=== PATIENT | male | born 1935 | race Caucasian/White ===

== ENCOUNTER 2020-12-08 06:32 | Inpatient (IN) | payer MEDICARE, OTHER ==
[~2020-12-08] VITALS: Ht 170.2 cm; Wt 73.7 kg
[2020-12-08 07:27] LABS: BASOPHIL 0.2 % (0-2); EOSINOPHIL 0.1 % (0-7); HCT 43.3 % (42.0-52.0); HGB 14.8 g/dl (13.2-18.0); LYMPHOCYTE 8.5 % (15-48); MCH 30.5 pg (25.0-31.0); MCHC 34.2 g/dL (32.0-36.0); MCV 89.1 fL (78.0-100.0); MONOCYTE 10.5 % (0-12); MPV 9.2 fL (6.0-9.5); NRBC 0; PLT 191 K/uL (150-400); RBC 4.86 M/uL (4.70-6.00); RDW 13.1 % (11.5-14.0); WBC 11.9 K/uL (4.0-10.5)
[2020-12-08 07:55] LABS: ALBUMIN 3.7 g/dL (3.4-5.0); BILIRUBIN - TOTAL 0.9 mg/dL (0.2-1.0); BUN/CREAT RATIO (CALC) 11.4 RATIO; CREATININE 3.06 mg/dL (0.67-1.17); GLOBULIN (CALCULATION) 2.9 g/dL; POTASSIUM 4.7 mmol/L (3.5-5.1); TOTAL PROTEIN 6.6 g/dL (6.4-8.2)
[2020-12-08 08:43] LABS: BILIRUBIN NEGATIVE (NEGATIVE); BLOOD 3+ Ery/uL (NEGATIVE); CLARITY CLEAR (CLEAR); COLOR YELLOW (YELLOW); GLUCOSE (U) NORMAL (NORMAL); LEUKOCYTES NEGATIVE Leu/uL (NEGATIVE); NITRITE NEGATIVE (NEGATIVE); PROTEIN 1+ mg/dL (NEGATIVE); UROBILINOGEN 0.2 mg/dL (0.2-1.0); pH 5.5 (5.0-9.0)
[2020-12-08 08:50] LABS: SQUAMOUS EPITHELIAL CELLS RARE
[2020-12-08] MEDS ORDERED: GABAPENTIN 100100 MG PO (13:10)
[2020-12-08] MEDS ORDERED: VALACYCLOVIR1000 MG PO (13:13)
[2020-12-08 18:32] LABS: MAGNESIUM 2.2 mg/dL (1.8-2.4); PHOSPHORUS 4.2 mg/dL (2.6-4.7)
[2020-12-09 06:18] LABS: BASOPHIL 0.2 % (0-2); EOSINOPHIL 0.1 % (0-7); HGB 14.6 g/dl (13.2-18.0); LYMPHOCYTE 10.9 % (15-48); MCH 30.2 pg (25.0-31.0); MCV 88.8 fL (78.0-100.0); MONOCYTE 11.6 % (0-12); MPV 9.4 fL (6.0-9.5); NEUTROPHIL 77.1 % (41-80); NRBC 0; PLT 178 K/uL (150-400); RBC 4.84 M/uL (4.70-6.00); RDW 13.1 % (11.5-14.0); WBC 9.2 K/uL (4.0-10.5)
[2020-12-09 06:31] LABS: INR 1.21 (0.9-1.2); PROTHROMBIN TIME 14.7 SECONDS (11.8-13.4)
[2020-12-09 06:49] LABS: BUN/CREAT RATIO (CALC) 17.5 RATIO; CREATININE 1.66 mg/dL (0.67-1.17); MAGNESIUM 2.4 mg/dL (1.8-2.4); PHOSPHORUS 2.6 mg/dL (2.6-4.7); POTASSIUM 4.6 mmol/L (3.5-5.1)
[2020-12-10 06:24] LABS: BASOPHIL 0.1 % (0-2); EOSINOPHIL 0.6 % (0-7); HCT 41.6 % (42.0-52.0); HGB 14.3 g/dl (13.2-18.0); LYMPHOCYTE 16.5 % (15-48); MCH 30.4 pg (25.0-31.0); MCHC 34.4 g/dL (32.0-36.0); MCV 88.5 fL (78.0-100.0); MONOCYTE 12.3 % (0-12); MPV 9.1 fL (6.0-9.5); NEUTROPHIL 70.2 % (41-80); NRBC 0; PLT 198 K/uL (150-400); RDW 13.1 % (11.5-14.0)
[2020-12-10 07:15] LABS: BUN/CREAT RATIO (CALC) 20.4 RATIO; CREATININE 0.93 mg/dL (0.67-1.17); MAGNESIUM 2.3 mg/dL (1.8-2.4)
[2020-12-10] MEDS ORDERED: FLOMAX 0.4 MG0.4 MG PO (10:48)
== END 2020-12-10 13:40 | disposition home or self-care (01) | DRG 698 ==
LOC: FER 06:32 → FMS 11:28
PROVIDERS: Internal Medicine; Internal Medicine Cardiovascular Disease; Nurse Practitioner; Nurse Practitioner Adult Health; ADMIT Internal Medicine
DX: N28.89 Other specified disorders of kidney and ureter (principal); G93.41 Metabolic encephalopathy; F05 Delirium due to known physiological condition; B02.8 Zoster with other complications; N36.8 Other specified disorders of urethra; Z20.822 Contact with and (suspected) exposure to COVID-19; N17.9 Acute kidney failure, unspecified; N13.30 Unspecified hydronephrosis; N40.0 Benign prostatic hyperplasia without lower urinary tract symptoms; R33.8 Other retention of urine; Z83.3 Family history of diabetes mellitus
CPT/HCPCS: 36415; 70450; 71045; 80048; 80053; 81001; 82553; 83735; 84100; 84145; 84153; 84443; 84484; 85025; 85610; 85730; 93005; G0378; J2060; J2185; J2405; J3486; J7030; U0002